=== PATIENT | female | born 1960 | race Caucasian/White ===

== ENCOUNTER 2021-01-09 21:54 | Emergency (ER) | payer OTHER ==
[~2021-01-09 21:54] MED LIST: ACTONEL150 MG PO; ADVAIR INH; ASPIRIN EC81 MG PO; CLARITIN10 MG PO; CRESTOR40 MG PO; DUONEB 2.5-0.5M1 AMP NEB; ELIQUIS5 MG PO; FLONASE ALLER15.8 ML; HYDROCODONE-CH473 ML PO; LASIX20 MG PO; LEVAQUIN500 MG PO; LEVAQUIN750 MG PO; LEVO-T50 MCG PO; MUCINEX 600MG600 MG PO; NORVASC5 MG PO; PREDNISONE 20MG20 MG PO; PREDNISONE5 MG PO; PRINIVIL20 MG PO; PROTONIX 40MG T40 MG PO; SINGULAIR10 MG PO; SPIRIVA18 MCG INH; TENORMIN50 MG PO; THEOPHYLLINE A300 MG PO; ZITHROMAX TRI-500 MG PO; [UNRECOGNIZED DRUG - OTHER] INH
[2021-01-09 22:58] LABS: BASOPHIL 0.1 % (0-2); EOSINOPHIL 0 % (0-5); HCT 38.1 % (37.0-47.0); HGB 12.2 g/dl (12.5-16.0); LYMPHOCYTE 12.4 % (15-48); MCH 28.4 pg (25.0-31.0); MCV 88.6 fL (78.0-100.0); MONOCYTE 6.8 % (0-12); NEUTROPHIL 79.4 % (41-80); NRBC 0; PLT 253 K/uL (150-400); RDW 13.9 % (11.5-14.0); WBC 9.4 K/uL (4.0-10.5)
[2021-01-09 23:09] LABS: BUN/CREAT RATIO (CALC) 22.1 RATIO; CREATININE 0.95 mg/dL (0.51-0.95); POTASSIUM 4.2 mmol/L (3.5-5.1)
[2021-01-09] MEDS ORDERED: ZPAK PO (23:59)
[2021-01-09] MEDS ORDERED: PREDNISONE 10MG10 MG PO (23:59)
== END 2021-01-10 00:15 | disposition home or self-care (01) ==
LOC: FER 21:54
PROVIDERS: Emergency Medicine Emergency Medical Services
DX: J44.0 Chronic obstructive pulmonary disease with (acute) lower respiratory infection (principal); J20.9 Acute bronchitis, unspecified; J44.1 Chronic obstructive pulmonary disease with (acute) exacerbation; I10 Essential (primary) hypertension; Z88.8 Allergy status to other drugs, medicaments and biological substances
CPT/HCPCS: 36415; 71046; 80048; 85025; 94640; 94664; J2930

== ENCOUNTER 2021-01-13 05:50 | Day surgery (SDCO) | payer OTHER ==
[~2021-01-13] VITALS: Ht 160 cm; Wt 58.1 kg
[~2021-01-13 05:50] MED LIST changes: +PREDNISONE 10MG10 MG PO; +ZPAK PO
[2021-01-13 06:21] LABS: BASOPHIL 0.5 % (0-2); EOSINOPHIL 0 % (0-5); HCT 38.7 % (37.0-47.0); HGB 12.6 g/dl (12.5-16.0); LYMPHOCYTE 10.5 % (15-48); MCHC 32.6 g/dL (32.0-36.0); MPV 10.4 fL (6.0-9.5); NEUTROPHIL 76.2 % (41-80); NRBC 0; PLT 308 K/uL (150-400); RBC 4.35 M/uL (4.20-5.40); RDW 13.7 % (11.5-14.0)
[2021-01-13 06:26] LABS: WBC 10.7 K/uL (4.0-10.5)
[2021-01-13 06:36] LABS: BILIRUBIN - TOTAL 0.2 mg/dL (0.2-1.0); CREATININE 1.15 mg/dL (0.51-0.95); GLOBULIN (CALCULATION) 2.9 g/dL; POTASSIUM 4.4 mmol/L (3.5-5.1); TOTAL PROTEIN 6.9 g/dL (6.4-8.2)
[2021-01-13 06:41] LABS: PRO-BNP 337 pg/mL (<125)
[2021-01-13] MEDS ORDERED: PREDNISONE 20MG20 MG PO (08:20)
[2021-01-13] MEDS ORDERED: DALIRESP500 MCG PO (12:45)
[2021-01-13] MEDS ORDERED: PROTONIX 40MG T40 MG PO (12:45)
[2021-01-13] MEDS ORDERED: SYNTHROID50 MCG PO (12:45)
[2021-01-13] MEDS ORDERED: TENORMIN50 MG PO (12:46)
[2021-01-13] MEDS ORDERED: CRESTOR40 MG PO (12:46)
[2021-01-13] MEDS ORDERED: VENTOLIN (2.5 MG/3 M INH ×2 (12:46→12:48)
[2021-01-13] MEDS ORDERED: CLARITIN10 MG PO (12:47)
[2021-01-13] MEDS ORDERED: NORVASC5 MG PO (12:47)
[2021-01-13] MEDS ORDERED: ZESTRIL5 M1 PO (12:47)
[2021-01-13] MEDS ORDERED: SINGULAIR10 MG PO (12:48)
[2021-01-13] MEDS ORDERED: LASIX40 MG PO (12:48)
[2021-01-13] MEDS ORDERED: FEOSOL325 MG PO (12:48)
[2021-01-13 14:56] LABS: IRON % SATURATION 12.7 %SAT (20-50)
[2021-01-14 06:17] LABS: BASOPHIL 0.3 % (0-2); EOSINOPHIL 0 % (0-5); HCT 33.9 % (37.0-47.0); HGB 10.8 g/dl (12.5-16.0); LYMPHOCYTE 10.8 % (15-48); MCH 28.6 pg (25.0-31.0); MCHC 31.9 g/dL (32.0-36.0); MCV 89.9 fL (78.0-100.0); MONOCYTE 7.5 % (0-12); MPV 10.5 fL (6.0-9.5); NEUTROPHIL 75.2 % (41-80); NRBC 0; PLT 259 K/uL (150-400); RBC 3.77 M/uL (4.20-5.40); WBC 10.6 K/uL (4.0-10.5)
[2021-01-14 06:20] LABS: CREATININE 0.8 mg/dL (0.51-0.95); MAGNESIUM 2.1 mg/dL (1.8-2.4); POTASSIUM 4.2 mmol/L (3.5-5.1)
[2021-01-15 06:18] LABS: HCT 36.2 % (37.0-47.0); HGB 11.5 g/dl (12.5-16.0); MCH 28.4 pg (25.0-31.0); MCHC 31.8 g/dL (32.0-36.0); MCV 89.4 fL (78.0-100.0); MPV 10.4 fL (6.0-9.5); RBC 4.05 M/uL (4.20-5.40); RDW 13.9 % (11.5-14.0); WBC 10.2 K/uL (4.0-10.5)
[2021-01-15 06:36] LABS: ALBUMIN 3.2 g/dL (3.4-5.0); BILIRUBIN - TOTAL 0.2 mg/dL (0.2-1.0); BUN/CREAT RATIO (CALC) 24.3 RATIO; CREATININE 0.74 mg/dL (0.51-0.95); GLOBULIN (CALCULATION) 2.7 g/dL; POTASSIUM 4.7 mmol/L (3.5-5.1); TOTAL PROTEIN 5.9 g/dL (6.4-8.2)
[2021-01-15] MEDS ORDERED: AZITHROMYCIN250 MG PO (07:42)
[2021-01-15] MEDS ORDERED: PREDNISONE 10MG10 MG PO (07:42)
[2021-01-15] MEDS ORDERED: CEFDINIR300 M1 PO (07:42)
--- NOTE | 2021-01-15 08:24 | NUR ---
DISCUSSED DISCHARGE INSTRUCTIONS WITH PATIENT. REVIEWED MEDICATIONS, FOLLOW UP APPOINTMENT. WORK NOTE GIVEN. PATIENT IN STABLE CONDITION. DISCHARGED HOME VIA W/C. IV REMOVED PRIOR TO DISCHARGE, NO BLEEDING NOTED
== END 2021-01-15 08:30 | disposition home or self-care (01) ==
LOC: FER 05:50 → FMS 10:29
PROVIDERS: Emergency Medicine; Nurse Practitioner; ADMIT Internal Medicine
DX: A41.9 Sepsis, unspecified organism (principal); J20.9 Acute bronchitis, unspecified; R65.20 Severe sepsis without septic shock; J44.0 Chronic obstructive pulmonary disease with (acute) lower respiratory infection; J44.1 Chronic obstructive pulmonary disease with (acute) exacerbation; J96.01 Acute respiratory failure with hypoxia; I10 Essential (primary) hypertension; J30.2 Other seasonal allergic rhinitis; E87.2 Acidosis; D50.9 Iron deficiency anemia, unspecified; N17.9 Acute kidney failure, unspecified; Z79.899 Other long term (current) drug therapy; Z88.8 Allergy status to other drugs, medicaments and biological substances; Z20.822 Contact with and (suspected) exposure to COVID-19
CPT/HCPCS: 36415; 36600; 71045; 71275; 80048; 80053; 82607; 82803; 83540; 83550; 83605; 83735; 83880; 84145; 84484; 85025; 85379; 87040; 93005; 94010; 94640; 94664; 94667; 94668; 94760; G0378; J0456; J0696; J1650; J2916; J2920; J2930; J7030; J7050; Q9967; U0002

== ENCOUNTER 2021-05-12 18:02 | Inpatient (IN) | payer OTHER ==
[~2021-05-12] VITALS: Ht 160 cm; Wt 54.6 kg
[~2021-05-12 18:02] MED LIST changes: +AZITHROMYCIN250 MG PO; +CEFDINIR300 M1 PO; +DALIRESP500 MCG PO; +FEOSOL325 MG PO; +LASIX40 MG PO; +SYNTHROID50 MCG PO; +VENTOLIN (2.5 MG/3 M INH; +ZESTRIL5 M1 PO
[2021-05-12 19:03] LABS: BASOPHIL 0.3 % (0-2); EOSINOPHIL 0 % (0-5); HCT 34.1 % (37.0-47.0); HGB 10.8 g/dl (12.5-16.0); LYMPHOCYTE 3.2 % (15-48); MCH 29.3 pg (25.0-31.0); MCHC 31.7 g/dL (32.0-36.0); MCV 92.7 fL (78.0-100.0); MONOCYTE 4.1 % (0-12); MPV 10.3 fL (6.0-9.5); NRBC 0; PLT 204 K/uL (150-400); RBC 3.68 M/uL (4.20-5.40); RDW 12.8 % (11.5-14.0); WBC 9.7 K/uL (4.0-10.5)
[2021-05-12 19:08] LABS: NEUTROPHIL 92.1 % (41-80)
[2021-05-12 19:23] LABS: ALBUMIN 3.6 g/dL (3.4-5.0); BILIRUBIN - TOTAL 0.3 mg/dL (0.2-1.0); BUN/CREAT RATIO (CALC) 17.9 RATIO; CREATININE 0.95 mg/dL (0.51-0.95); LACTIC ACID 0.3 mmol/L (0.4-1.9); POTASSIUM 3.9 mmol/L (3.5-5.1); TOTAL PROTEIN 6.6 g/dL (6.4-8.2)
[2021-05-12 19:27] LABS: PRO-BNP 231 pg/mL (<125)
[2021-05-12 21:23] LABS: CORONAVIRUS 2019 SARS-COV-2 NEGATIVE (NEGATIVE); INFLUENZA A NAA NEGATIVE (NEGATIVE)
[2021-05-13] MEDS ORDERED: TUSSICAPS 10 M1 EACH PO (06:33)
[2021-05-13] MEDS ORDERED: MUCINEX 600MG600 MG PO (06:34)
[2021-05-13] MEDS ORDERED: PROTONIX 40MG T40 MG PO ×2 (06:34→06:46)
[2021-05-13] MEDS ORDERED: VENTOLIN HFA IN18 GM INH (06:35)
[2021-05-13] MEDS ORDERED: BROVANA15 MCG/2 M INH (06:36)
[2021-05-13] MEDS ORDERED: PULMICORT0.5 MG/2 M INH (06:38)
[2021-05-13] MEDS ORDERED: PREDNISONE 20MG20 MG PO (06:41)
[2021-05-13] MEDS ORDERED: NORVASC5 MG PO (06:42)
[2021-05-13] MEDS ORDERED: TENORMIN50 MG PO (06:42)
[2021-05-13] MEDS ORDERED: LEVOTHYROXINE50 MC1 PO (06:43)
[2021-05-13] MEDS ORDERED: ZESTRIL5 MG PO (06:44)
[2021-05-13] MEDS ORDERED: MONTELUKAST SOD10 MG PO (06:45)
[2021-05-13] MEDS ORDERED: CRESTOR40 M1 PO (06:47)
[2021-05-13] MEDS ORDERED: SPIRIVA 18MCG18 MCG INH (06:48)
[2021-05-13] MEDS ORDERED: FUROSEMIDE 40MG40 MG PO (06:52)
[2021-05-13] MEDS ORDERED: ASPIRIN EC81 MG PO (06:53)
[2021-05-14 05:52] LABS: BASOPHIL 0.2 % (0-2); EOSINOPHIL 0 % (0-5); HCT 37.2 % (37.0-47.0); HGB 11.3 g/dl (12.5-16.0); LYMPHOCYTE 7.7 % (15-48); MCH 29.9 pg (25.0-31.0); MCHC 30.4 g/dL (32.0-36.0); MONOCYTE 5.2 % (0-12); MPV 10.5 fL (6.0-9.5); NEUTROPHIL 84.8 % (41-80); NRBC 0; PLT 217 K/uL (150-400); RBC 3.78 M/uL (4.20-5.40); RDW 12.8 % (11.5-14.0); WBC 11.5 K/uL (4.0-10.5)
[2021-05-14 06:04] LABS: MCV 98.4 fL (78.0-100.0)
[2021-05-14 06:19] LABS: IRON % SATURATION 6.7 %SAT (20-50)
[2021-05-14 07:05] LABS: CREATININE 0.64 mg/dL (0.51-0.95); FOLIC ACID (SERUM) 43.7 ng/mL (8.6-58.9); MAGNESIUM 3.1 mg/dL (1.8-2.4); POTASSIUM 4.7 mmol/L (3.5-5.1)
--- NOTE | 2021-05-14 10:17 | NUR ---
05/14/21 Ms. Bush and her boyfriend share a home together. She is independent and works. Ms. Bush uses 02 at 2 L at night only. [facility] ([phone]) provides the 02. Please complete a walk test and contact [facility] for continuos 02 if needed.
--- NOTE | 2021-05-14 11:58 | NUR ---
AT APPROX 0830 PATIENT CALLED OUT WAS HAVING DIFFICULTY BREATHING AND HAD REMOVED BIPAP MASK. MASK WAS PLACED BACK ON AND PATIENT WAS LABORED BREATHING AND UNABLE TO SAY A FULL WORD. PATIENT WAS REASSESSED, LUNGS HAS EXPIRATORY WHEEZING AND TACHYPNIC. PATIENT WAS GIVEN XANAX 1MG FOR ANXIETY. WENT TO SPEAK WITH REGARDING PATIENT STATUS AND CONCERNS. HE ORDERED PATIENT TO BE TRANSFERED TO ICU SO PATIENT COULD BE PLACED ON AMINOPHYLLINE DRIP AND PRECEDEX FOR ANXIETY. WITHHELD PO MEDICATIONS DUE TO PATIENT BEING IN RESPIRATORY DISTRESSED. MOVED PATIENT TO ICU3 AND GAVE REPORT TO AMISH GAMING. SPOKE WITH REGARDING CODE STATUS AND HE STATED SHE DID NOT WANT TO BE INTUBATED. ALSO UPDATED HIM ON PATIENT STATUS. I ALSO EXPLAINED WHY PATIENT WAS MOVED TO ICU AND THAT SHE REQUIRED CERTAIN MEDICATIONS THAT I AM NOT ALLOWED TO GIVE IN TCU.
[2021-05-15 05:34] LABS: BASOPHIL 0.3 % (0-2); EOSINOPHIL 0 % (0-5); HCT 35.2 % (37.0-47.0); HGB 10.6 g/dl (12.5-16.0); LYMPHOCYTE 20.1 % (15-48); MCH 29.7 pg (25.0-31.0); MCHC 30.1 g/dL (32.0-36.0); MCV 98.6 fL (78.0-100.0); MONOCYTE 5.3 % (0-12); MPV 10.3 fL (6.0-9.5); NEUTROPHIL 72.3 % (41-80); NRBC 0; PLT 200 K/uL (150-400); RBC 3.57 M/uL (4.20-5.40); RDW 12.4 % (11.5-14.0)
[2021-05-15 05:42] LABS: WBC 7.1 K/uL (4.0-10.5)
[2021-05-15 05:54] LABS: BILIRUBIN - TOTAL 0.1 mg/dL (0.2-1.0); BUN/CREAT RATIO (CALC) 36.7 RATIO; CREATININE 0.49 mg/dL (0.51-0.95); GLOBULIN (CALCULATION) 3.1 g/dL; POTASSIUM 4.4 mmol/L (3.5-5.1); TOTAL PROTEIN 6.1 g/dL (6.4-8.2)
--- NOTE | 2021-05-16 06:16 | NUR ---
pt request to take off bipap mask. v.mask placed by rt. o2 sats 90%. rt placed pt on nrb. o2 sats 100%. NRb on approx 5-10min. calls out reporting harder to breath and wants to put bipap back on
[2021-05-16 06:27] LABS: BASOPHIL 0.3 % (0-2); EOSINOPHIL 0 % (0-5); HCT 37.3 % (37.0-47.0); HGB 11.1 g/dl (12.5-16.0); LYMPHOCYTE 12.3 % (15-48); MCHC 29.8 g/dL (32.0-36.0); MCV 97.4 fL (78.0-100.0); MONOCYTE 6.2 % (0-12); MPV 10.4 fL (6.0-9.5); NEUTROPHIL 77.5 % (41-80); NRBC 0; PLT 229 K/uL (150-400); RBC 3.83 M/uL (4.20-5.40); WBC 6.4 K/uL (4.0-10.5)
[2021-05-16 06:49] LABS: ALBUMIN 3.3 g/dL (3.4-5.0); BILIRUBIN - TOTAL 0.2 mg/dL (0.2-1.0); BUN/CREAT RATIO (CALC) 40.4 RATIO; CREATININE 0.57 mg/dL (0.51-0.95); GLOBULIN (CALCULATION) 2.9 g/dL; MAGNESIUM 3.1 mg/dL (1.8-2.4); POTASSIUM 4.1 mmol/L (3.5-5.1); TOTAL PROTEIN 6.2 g/dL (6.4-8.2)
[2021-05-17 07:17] LABS: BASOPHIL 0.2 % (0-2); EOSINOPHIL 0 % (0-5); HCT 35.7 % (37.0-47.0); HGB 10.9 g/dl (12.5-16.0); LYMPHOCYTE 12.9 % (15-48); MCH 29.5 pg (25.0-31.0); MCHC 30.5 g/dL (32.0-36.0); MCV 96.5 fL (78.0-100.0); MONOCYTE 6.8 % (0-12); MPV 10.3 fL (6.0-9.5); NEUTROPHIL 78.1 % (41-80); NRBC 0; PLT 208 K/uL (150-400); RDW 11.8 % (11.5-14.0); WBC 5.6 K/uL (4.0-10.5)
[2021-05-17 07:52] LABS: ALBUMIN 2.9 g/dL (3.4-5.0); BILIRUBIN - TOTAL 0.2 mg/dL (0.2-1.0); BUN/CREAT RATIO (CALC) 51.1 RATIO; CREATININE 0.47 mg/dL (0.51-0.95); GLOBULIN (CALCULATION) 2.9 g/dL; MAGNESIUM 2.9 mg/dL (1.8-2.4); PHOSPHORUS 2.2 mg/dL (2.6-4.7); POTASSIUM 3.9 mmol/L (3.5-5.1); TOTAL PROTEIN 5.8 g/dL (6.4-8.2)
[2021-05-19 06:31] LABS: BASOPHIL 0.3 % (0-2); EOSINOPHIL 0.5 % (0-5); HCT 37.1 % (37.0-47.0); HGB 11.6 g/dl (12.5-16.0); LYMPHOCYTE 22.8 % (15-48); MCH 29.5 pg (25.0-31.0); MCHC 31.3 g/dL (32.0-36.0); MCV 94.4 fL (78.0-100.0); MONOCYTE 7.1 % (0-12); MPV 10.5 fL (6.0-9.5); NRBC 0; PLT 211 K/uL (150-400); RBC 3.93 M/uL (4.20-5.40); RDW 11.9 % (11.5-14.0); WBC 6.5 K/uL (4.0-10.5)
[2021-05-19 06:44] LABS: BUN/CREAT RATIO (CALC) 55.1 RATIO; CREATININE 0.49 mg/dL (0.51-0.95)
[2021-05-22 06:10] LABS: BASOPHIL 0.4 % (0-2); EOSINOPHIL 1.5 % (0-5); HCT 37.2 % (37.0-47.0); HGB 11.7 g/dl (12.5-16.0); LYMPHOCYTE 29.2 % (15-48); MCH 29.5 pg (25.0-31.0); MCHC 31.5 g/dL (32.0-36.0); MCV 93.9 fL (78.0-100.0); MONOCYTE 12.3 % (0-12); MPV 10.4 fL (6.0-9.5); NEUTROPHIL 54.3 % (41-80); NRBC 0; PLT 213 K/uL (150-400); RBC 3.96 M/uL (4.20-5.40); RDW 12.5 % (11.5-14.0); WBC 7.3 K/uL (4.0-10.5)
[2021-05-22 06:25] LABS: BUN/CREAT RATIO (CALC) 23.5 RATIO; CREATININE 0.51 mg/dL (0.51-0.95); POTASSIUM 3.5 mmol/L (3.5-5.1)
--- NOTE | 2021-05-22 23:01 | NUR ---
@ 2245 MS DRISCOLL HAD GOTTEN UP FROM HER BED UNASSISTED AND WALKED AROUND THE BOTTOM HALF OF HER BED TO GET HER "BAG OF SNACKS" THAT WERE LOCATED IN THE RECLINER CHAIR NEXT TO HER. WHEN WALKING BACK TO THE BED SHE FELL ONTO HER BOTTOM. PATIENT REPORTS PAIN IN HER TAILBONE (6 OUT OF 10). UPON ASSESSMENT NO NEW SKIN ISSUES OR INJURIES NOTED TO TAILBONE. @ 2255 DR CENTENO WAS NOTIFIED AND RN REPORTED FALL WITH C/O TAILBONE PAIN AND CURRENT VITALS OF: BP-183/81 HR-86 RR-18 TEMP-97.5 O2- 98% 2L NC. RN ASKED DR. CENTENO IF SHE WOULD LIKE US TO DO ANY IMAGING AT THIS TIME. DR. CENTENO STATED, "NO, LETS CONTINUE TO MONITOR FOR NOW". @ 2300 BLEACHER KRAFT PULP WAS NOTIFIED OF FALL EVENT. PATIENT DECLINED FOR US TO CALL AND REPORT INCIDENT TO FAMILY.
--- NOTE | 2021-05-22 23:23 | NUR ---
PATIENT BED ALARM ACTIVATED AND EDUCATION PROVIDED TO PATIENT ABOUT USING CALL LIGHT FOR ANY NEEDS/WANTS OR ANY ASSISTANCE WITH TRANSFERS OR AMBULATION.
--- NOTE | 2021-05-23 16:25 | NUR ---
05/23 Therapy recommended outpatient therapy and a rw. Ms. Bush states that she has a rw and does not wish to go to Outpatient Therapy. Will continue to monitor for continuos home
[2021-05-24] MEDS ORDERED: TOPROL XL 50 MG50 MG PO (09:41)
[2021-05-24] MEDS ORDERED: HYDROCODONE-CH473 ML PO (09:41)
[2021-05-24] MEDS ORDERED: XANAX0.5 MG PO ×2 (09:41→09:44)
[2021-05-24] MEDS ORDERED: SEROQUEL 25MG T25 MG PO (09:41)
[2021-05-24] MEDS ORDERED: PREDNISONE 20MG20 MG PO (09:41)
--- NOTE | 2021-05-24 13:04 | NUR ---
05/24 Patient does not require continuos 02 per Vero Gibbs MS RN.
== END 2021-05-24 11:27 | disposition home or self-care (01) | DRG 871 ==
LOC: FER 18:02 → FICU 05-13 00:58 → FTCU 05-13 00:58 → FICU 05-14 10:14 → FTCU 05-21 10:06 → FMS 05-22 07:45
PROVIDERS: Emergency Medicine; Internal Medicine; Internal Medicine Cardiovascular Disease; ADMIT Internal Medicine
PROC: 5A09557 Assistance with Respiratory Ventilation, Greater than 96 Consecutive Hours, Continuous Positive Airway Pressure (ICD-10-PCS; principal; 2021-05-13)
DX: A41.9 Sepsis, unspecified organism (principal); J18.9 Pneumonia, unspecified organism; J96.21 Acute and chronic respiratory failure with hypoxia; G93.41 Metabolic encephalopathy; I21.A1 Myocardial infarction type 2; J44.1 Chronic obstructive pulmonary disease with (acute) exacerbation; J44.0 Chronic obstructive pulmonary disease with (acute) lower respiratory infection; F05 Delirium due to known physiological condition; R65.20 Severe sepsis without septic shock; L89.810 Pressure ulcer of head, unstageable; Z20.822 Contact with and (suspected) exposure to COVID-19; F41.9 Anxiety disorder, unspecified; I25.10 Atherosclerotic heart disease of native coronary artery without angina pectoris; I10 Essential (primary) hypertension; I49.3 Ventricular premature depolarization; M81.0 Age-related osteoporosis without current pathological fracture; J20.9 Acute bronchitis, unspecified; D50.9 Iron deficiency anemia, unspecified; Z99.81 Dependence on supplemental oxygen; Z79.51 Long term (current) use of inhaled steroids; Z79.52 Long term (current) use of systemic steroids; Z79.890 Hormone replacement therapy; Z79.899 Other long term (current) drug therapy; Z85.118 Personal history of other malignant neoplasm of bronchus and lung; I25.2 Old myocardial infarction; Z86.711 Personal history of pulmonary embolism; Z90.710 Acquired absence of both cervix and uterus; Z98.1 Arthrodesis status; Z98.890 Other specified postprocedural states; Z88.8 Allergy status to other drugs, medicaments and biological substances
CPT/HCPCS: 36415; 36600; 71045; 80048; 80053; 82607; 82746; 82803; 82962; 83540; 83550; 83605; 83735; 83880; 84100; 84145; 84484; 85025; 87040; 87070; 87205; 93005; 94640; 94660; 94664; 97162; 97166; 97530-GP; 97535; J0280; J0360; J0456; J0696; J1170; J1650; J2001; J2060; J2185; J2270; J2543; J2916; J2920; J2930; J3360; J3475; J7030; J7050; J7060; J7512; Q9967; U0002

== ENCOUNTER → 2021-10-10 | Day surgery (SDC) | payer OTHER ==
[~2021-10-10] VITALS: Ht 160 cm; Wt 54.6 kg
[~2021-10-10] MED LIST changes: +ALENDRONATE SOD70 MG PO; +BROVANA15 MCG/2 M INH; +CRESTOR40 M1 PO; +FUROSEMIDE 40MG40 MG PO; +LEVOTHYROXINE50 MC1 PO; +MONTELUKAST SOD10 MG PO; +PULMICORT0.5 MG/2 M INH; +SEROQUEL 25MG T25 MG PO; +SPIRIVA 18MCG18 MCG INH; +TOPROL XL 50 MG50 MG PO; +TUSSICAPS 10 M1 EACH PO; +VENTOLIN HFA IN18 GM INH; +XANAX0.5 MG PO; +ZESTRIL5 MG PO
[2021-10-10 09:09] LABS: HCT 39.8 % (37.0-47.0); HGB 13.2 g/dl (12.5-16.0); MCH 30.8 pg (25.0-31.0); MCHC 33.2 g/dL (32.0-36.0); MCV 92.8 fL (78.0-100.0); MPV 9.8 fL (6.0-9.5); RBC 4.29 M/uL (4.20-5.40); RDW 11.8 % (11.5-14.0); WBC 6.2 K/uL (4.0-10.5)
[2021-10-10 09:49] LABS: ALBUMIN 3.9 g/dL (3.4-5.0); BILIRUBIN - TOTAL 0.2 mg/dL (0.2-1.0); CREATININE 0.8 mg/dL (0.51-0.95); GLOBULIN (CALCULATION) 3.1 g/dL; POTASSIUM 3.2 mmol/L (3.5-5.1)
== END | disposition home or self-care (01) ==
LOC: FAS 08:14
PROVIDERS: Surgery
DX: Z12.11 Encounter for screening for malignant neoplasm of colon (principal); D12.3 Benign neoplasm of transverse colon; I10 Essential (primary) hypertension; E78.00 Pure hypercholesterolemia, unspecified; I25.2 Old myocardial infarction; J44.9 Chronic obstructive pulmonary disease, unspecified; I26.99 Other pulmonary embolism without acute cor pulmonale; E78.5 Hyperlipidemia, unspecified; E03.9 Hypothyroidism, unspecified; Z88.8 Allergy status to other drugs, medicaments and biological substances; Z91.048 Other nonmedicinal substance allergy status; Z79.82 Long term (current) use of aspirin; Z79.899 Other long term (current) drug therapy
CPT/HCPCS: 36415; 80053; 93005; J2704; J7120

== ENCOUNTER 2021-11-21 23:18 | Emergency (ER) | payer OTHER ==
[2021-11-22 02:01] LABS: BASOPHIL 0.1 % (0-2); EOSINOPHIL 0 % (0-5); HCT 37.8 % (37.0-47.0); HGB 12.3 g/dl (12.5-16.0); LYMPHOCYTE 12.9 % (15-48); MCH 29.5 pg (25.0-31.0); MCHC 32.5 g/dL (32.0-36.0); MCV 90.6 fL (78.0-100.0); MONOCYTE 6.2 % (0-12); MPV 9.7 fL (6.0-9.5); NEUTROPHIL 80.2 % (41-80); NRBC 0; PLT 361 K/uL (150-400); RBC 4.17 M/uL (4.20-5.40); RDW 12.7 % (11.5-14.0); WBC 8.2 K/uL (4.0-10.5)
[2021-11-22 02:25] LABS: ALBUMIN 3.6 g/dL (3.4-5.0); BILIRUBIN - TOTAL 0.4 mg/dL (0.2-1.0); BUN/CREAT RATIO (CALC) 20.3 RATIO; CREATININE 0.79 mg/dL (0.51-0.95); GLOBULIN (CALCULATION) 2.9 g/dL; POTASSIUM 4.7 mmol/L (3.5-5.1); TOTAL PROTEIN 6.5 g/dL (6.4-8.2)
[2021-11-22 02:50] LABS: CORONAVIRUS 2019 SARS-COV-2 NEGATIVE (NEGATIVE); INFLUENZA A NAA NEGATIVE (NEGATIVE)
[2021-11-22] MEDS ORDERED: VENTOLIN HFA IN18 GM INH (03:55)
[2021-11-22] MEDS ORDERED: VIBRAMYCIN100 MG PO (03:55)
[2021-11-22] MEDS ORDERED: PREDNISONE 20MG20 MG PO (03:55)
== END 2021-11-22 04:08 | disposition home or self-care (01) ==
LOC: FER 23:18
PROVIDERS: Internal Medicine
DX: J44.1 Chronic obstructive pulmonary disease with (acute) exacerbation (principal); Z20.822 Contact with and (suspected) exposure to COVID-19; Z91.09 Other allergy status, other than to drugs and biological substances
CPT/HCPCS: 36415; 71045; 80053; 84145; 84484; 85025; 93005; 94640; 94664; J1100; U0002